=== PATIENT | male | born 2000 | race African-American/Black ===

== ENCOUNTER 2019-07-15 19:37 | Emergency (ER) | payer OTHER ==
[2019-07-15] MEDS ORDERED: Lidocaine 1% INJ* 10 MG/ML 30 ML SDV INJ ONE (20:06)
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
[2019-07-15] MEDS ORDERED: Tetan/Diph/Pertus SYR(Tdap)* 0.5 ML SYR(BOOSTRIX) use SYR contains LATEX IM ONE (22:50)
[2019-07-15 23:17] VITALS: BP 124/72
== END 2019-07-15 23:15 | disposition home or self-care (01) ==
LOC: ED 19:37
DX: S01.81XA Laceration without foreign body of other part of head, initial encounter (principal); S11.91XA Laceration without foreign body of unspecified part of neck, initial encounter; W45.8XXA Other foreign body or object entering through skin, initial encounter; Y93.89 Activity, other specified; Y92.149 Unspecified place in prison as the place of occurrence of the external cause; Z23 Encounter for immunization; Z91.018 Allergy to other foods; F17.200 Nicotine dependence, unspecified, uncomplicated
CPT/HCPCS: 12002; 12015; 90471; 90715; 99282